=== PATIENT | male | born 1945 | race Two or more races ===

== ENCOUNTER 2022-02-09 22:40 | Inpatient (IN) | payer MEDICARE, OTHER ==
[~2022-02-09] VITALS: Ht 185.4 cm; Wt 83.9 kg
[2022-02-09] MEDS ORDERED: ACETAMINOPHEN 325 MG TAB PO ONE (23:45)
[2022-02-10 00:31] LABS: Urine Bacteria NONE SEEN /hpf (None Seen); Urine Blood Negative /uL (Negative); Urine Hyaline Cast MOD /lpf (0 - 2); Urine Specific Gravity 1.013 (1.001-1.035); Urine WBC 1 /hpf (0 - 3)
[2022-02-10 00:50] LABS: Alcohol, Urine < 3.0 mg/dL (0-10); Amphetamine Screen, Urine NEGATIVE (NEGATIVE); Barbiturate Scree,Urine NEGATIVE (NEGATIVE); Benzodiazephine Screen, Urine POSITIVE (NEGATIVE); Cocaine Screen, Urine NEGATIVE (NEGATIVE); Opiate Scree,Urine POSITIVE (NEGATIVE); Phencyclidine Screen, Urine NEGATIVE (NEGATIVE)
[2022-02-10 00:56] LABS: Hemoglobin 9.3 g/dL (13.5-17.5); Mean Corpuscular Hemoglobin 30.7 pg (28.0-32.0); Mean Corpuscular Hgb Conc. 33.2 g/dL (32.0-36.0); Mean Corpuscular Volume 92.4 fL (80.0-100.0); Red Blood Cells 3.03 10^6/uL (4.5-5.90); Red Cell Distribution Width 15.2 % (11.8-14.3); White Blood Cell 5.6 10^3/uL (4.4-10.8)
[2022-02-10 01:08] LABS: Basophils % (manual) 0 (0.0-2.0); Blast Cells 0; Eosinophils % (manual) 0 (0-7); Metamyelocytes % 0; Myelocytes % 0; Promyelocytes % 0; Reactive Lymphocytes 0
[2022-02-10 01:14] LABS: Alanine Aminotransferase 31 U/L (16-61); Albumin 3.4 g/dL (3.4-5.0); Anion Gap 13 (5-15); Aspartate Aminotransferase 40 U/L (15-37); Blood Urea Nitrogen 68 mg/dL (7-18); Calcium 8.1 mg/dL (8.5-10.1); Carbon Dioxide 18 mmol/L (21-32); Chloride 102 mmol/L (98-107); GFR African American 19 mL/min; GFR Non-African American 16 mL/min; Glucose 155 mg/dL (74-106); Sodium 133 mmol/L (136-145)
[2022-02-10 01:17] LABS: Alkaline Phosphatase 79 U/L (45-117); Total Protein 6.3 g/dL (6.4-8.2)
[2022-02-10 01:20] LABS: Cannabinoid Screen, Urine NEGATIVE (NEGATIVE)
[2022-02-10 01:24] LABS: Potassium 6.4 mmol/L (3.5-5.1)
[2022-02-10 01:41] LABS: Band Neutrophils % (manual) 26; Lymphocytes % (manual) 45 (10.0-50.0); Monocytes % (manual) 6 (0-12)
[2022-02-10] MEDS ORDERED: CALCIUM GLUC 1,000mg/50ml-NS 50 ML IV ONE (02:30)
[2022-02-10] MEDS ORDERED: DEXTROSE (50%) 50ML SYRG IV ONE (02:30)
[2022-02-10] MEDS ORDERED: SODIUM BICARBONATE 8.4% INJ 50ML SYRINGE IV ONE (02:30)
[2022-02-10] MEDS ORDERED: SODIUM ZIRCONIUM CYCL 10 GM PAK PO ONE (02:30)
[2022-02-10] MEDS ORDERED: InsuLIN REG 1unit/0.01ml Soln (100units/ml) IV ONE (02:30)
[2022-02-10] MEDS ORDERED: SODIUM CHLORIDE 0.9% 1,000 ML IV ONE ×3 (03:45→11:00)
[2022-02-10 10:25] LABS: Albumin 2.9 g/dL (3.4-5.0); Calcium 7.9 mg/dL (8.5-10.1)
[2022-02-10 10:29] LABS: % Iron Saturation 5.4 % (20-55); Bilirubin, Total 0.8 mg/dL (0.2-1.0); Total Protein 5.4 g/dL (6.4-8.2)
[2022-02-10] MEDS ORDERED: MORPHINE SULFATE INJ 2 MG/ml SYRG IV PRN (10:30)
[2022-02-10] MEDS: SODIUM CHLORIDE 0.9% 1,000 ML IV SCH (10:30)
[2022-02-10 10:35] LABS: BUN/Creatinine Ratio 18.7
[2022-02-10 12:09] LABS: Thyroid Stimulating Hormone 0.03 uIU/mL (0.358-3.74)
[2022-02-10 15:48] LABS: Thyroid Stimulating Hormone 0.03 uIU/mL (0.358-3.74)
[2022-02-10 22:03] LABS: Sodium Urine 43 mmol/L (40-220)
[2022-02-10 22:05] LABS: Creatinine, Urine 82 mg/dL (30.0-125.0)
[2022-02-11] MEDS: SODIUM CHLORIDE 0.9% 1,000 ML IV SCH ×3 (00:48→13:51)
[2022-02-11 07:51] LABS: Albumin 2.8 g/dL (3.4-5.0); BUN/Creatinine Ratio 20.2; Calcium 8.4 mg/dL (8.5-10.1); Potassium 5.2 mmol/L (3.5-5.1)
[2022-02-11 07:53] LABS: Total Protein 5.8 g/dL (6.4-8.2)
[2022-02-11] MEDS ORDERED: ENOXAPARIN SOD 30 MG/0.3 ML SYRINGE SC SCH (10:00)
[2022-02-11] MEDS: ONDANSETRON HCL 4 MG/2 ML VIAL IV PRN (10:39)
[2022-02-11] MEDS ORDERED: InsuLIN REG 1unit/0.01ml Soln (100units/ml) IV ONE (14:30)
[2022-02-11] MEDS ORDERED: DEXTROSE (50%) 50ML SYRG IV ONE (14:30)
[2022-02-11] MEDS ORDERED: CALCIUM GLUC 1,000mg/50ml-NS 50 ML IV ONE (14:30)
[2022-02-11] MEDS ORDERED: ALBUTEROL SULF 2.5 MG/0.5ML(0.5%) NEB SOLN NEB ONE (14:30)
[2022-02-11] MEDS ORDERED: LORazepam 0.5 MG TAB PO PRN (14:30)
[2022-02-11] MEDS ORDERED: PROPRANOLOL HCL 20 MG TAB PO ONE (14:30)
[2022-02-11] MEDS: SODIUM BICARBONATE 50ML VIAL 150 ML in D5W 5% 1,000 ML IV SCH (15:21)
[2022-02-11] MEDS: HYDROcodone-ACET 5/325MG TAB PO PRN (15:24)
[2022-02-11 15:56] LABS: Hematocrit 27.4 % (41.0-53.0); Hemoglobin 8.9 g/dL (13.5-17.5); Mean Corpuscular Hemoglobin 30.3 pg (28.0-32.0); Mean Corpuscular Hgb Conc. 32.6 g/dL (32.0-36.0); Mean Corpuscular Volume 92.7 fL (80.0-100.0); Red Blood Cells 2.95 10^6/uL (4.5-5.90); Red Cell Distribution Width 15.7 % (11.8-14.3); White Blood Cell 3.2 10^3/uL (4.4-10.8)
[2022-02-11 16:05] LABS: Basophils % (manual) 0 (0.0-2.0); Blast Cells 0; Metamyelocytes % 0; Myelocytes % 0; Promyelocytes % 0
[2022-02-11] MEDS: FERROUS SULFATE 325mg EC TAB PO SCH ×2 (18:00→22:26)
[2022-02-11 20:26] LABS: Band Neutrophils % (manual) 22; Eosinophils % (manual) 1 (0-7); Lymphocytes % (manual) 31 (10.0-50.0); Monocytes % (manual) 5 (0-12); Reactive Lymphocytes 7
[2022-02-11 22:00] VITALS: BP 117/52
[2022-02-11] MEDS: PROPRANOLOL HCL 20 MG TAB PO SCH (22:24)
[2022-02-11] MEDS: HYDROcodone-ACET 5/325MG TAB PO SCH ×2 (22:25→22:27)
[2022-02-12] MEDS: SODIUM BICARBONATE 50ML VIAL 150 ML in D5W 5% 1,000 ML IV SCH (01:15)
[2022-02-12 05:00] VITALS: BP 111/49
[2022-02-12] MEDS: SODIUM CHLORIDE 0.9% 1,000 ML IV SCH ×2 (05:24→21:18)
[2022-02-12] MEDS: HYDROcodone-ACET 5/325MG TAB PO SCH ×3 (06:25→21:17)
[2022-02-12] MEDS ORDERED: PANT40TA2 PO (07:01)
[2022-02-12] MEDS ORDERED: GUAI100S6 PO (07:01)
[2022-02-12 07:03] LABS: BUN/Creatinine Ratio 17.6; Calcium 7.6 mg/dL (8.5-10.1); Potassium 4.5 mmol/L (3.5-5.1)
[2022-02-12] MEDS ORDERED: GLUC1CAP11 PO (08:18)
[2022-02-12] MEDS ORDERED: NADO40TA4 PO (08:18)
[2022-02-12] MEDS ORDERED: SERT50TA19 PO (08:18)
[2022-02-12] MEDS ORDERED: SPIR25TA8 PO (08:18)
[2022-02-12] MEDS ORDERED: LEVO150T10 PO (08:18)
[2022-02-12] MEDS ORDERED: ASPI1TAB20 PO (08:18)
[2022-02-12] MEDS ORDERED: DIAZ5TAB PO (08:18)
[2022-02-12] MEDS ORDERED: LEVO25TA6 PO (08:18)
[2022-02-12] MEDS ORDERED: ALBU0.084 NEB (08:18)
[2022-02-12] MEDS ORDERED: FURO40TA4 PO (08:18)
[2022-02-12] MEDS ORDERED: SUCR1SUS5 PO (08:18)
[2022-02-12 09:00] VITALS: BP 101/49
[2022-02-12] MEDS: PROPRANOLOL HCL 20 MG TAB PO SCH ×2 (10:28→21:20)
[2022-02-12] MEDS: FERROUS SULFATE 325mg EC TAB PO SCH ×2 (10:28→21:17)
[2022-02-12 13:00] VITALS: BP 109/56
[2022-02-12 17:00] VITALS: BP 124/48
[2022-02-12 22:00] VITALS: BP 108/53
[2022-02-12] MEDS: diazePAM 5 MG TAB PO SCH (22:00)
[2022-02-12] MEDS ORDERED: HYDROcodone-ACET 5/325MG TAB PO PRN (22:45)
[2022-02-13] MEDS: HYDROcodone-ACET 5/325MG TAB PO PRN ×2 (04:18→21:05)
[2022-02-13 05:00] VITALS: BP 109/54
[2022-02-13 05:37] LABS: Hematocrit 24.8 % (41.0-53.0); Hemoglobin 8.3 g/dL (13.5-17.5); Mean Corpuscular Hgb Conc. 33.5 g/dL (32.0-36.0)
[2022-02-13 05:39] LABS: Mean Corpuscular Hemoglobin 31.2 pg (28.0-32.0); Mean Corpuscular Volume 93.2 fL (80.0-100.0); Red Blood Cells 2.66 10^6/uL (4.5-5.90); Red Cell Distribution Width 15.2 % (11.8-14.3); White Blood Cell 3.7 10^3/uL (4.4-10.8)
[2022-02-13] MEDS: diazePAM 5 MG TAB PO SCH (05:53)
[2022-02-13 05:59] LABS: BUN/Creatinine Ratio 12.5; Potassium 4.8 mmol/L (3.5-5.1)
[2022-02-13 06:34] LABS: Band Neutrophils % (manual) 0; Basophils % (manual) 0 (0.0-2.0); Blast Cells 0; Metamyelocytes % 0; Myelocytes % 0; Promyelocytes % 0
[2022-02-13 08:49] LABS: Eosinophils % (manual) 2 (0-7); Lymphocytes % (manual) 80 (10.0-50.0); Monocytes % (manual) 2 (0-12); Reactive Lymphocytes 1
[2022-02-13] MEDS: PROPRANOLOL HCL 20 MG TAB PO SCH ×2 (08:56→21:47)
[2022-02-13 09:00] VITALS: BP 103/51
[2022-02-13] MEDS: FERROUS SULFATE 325mg EC TAB PO SCH ×3 (09:07→17:22)
[2022-02-13] MEDS: SUCRALFATE 1 GM/10 ML ORAL SUSP PO SCH (09:07)
[2022-02-13] MEDS: SERTRALINE HCL 50 MG TAB PO SCH (09:08)
[2022-02-13] MEDS ORDERED: LEVOTHYROXINE SODIUM 25 MCG TAB PO SCH (10:00)
[2022-02-13] MEDS ORDERED: LEVOTHYROXINE SODIUM 50 MCG TAB PO SCH (10:00)
[2022-02-13] MEDS: SODIUM CHLORIDE 0.9% 1,000 ML IV SCH (10:11)
[2022-02-13] MEDS: ONDANSETRON HCL 4 MG/2 ML VIAL IV PRN ×2 (10:12→17:25)
[2022-02-13] MEDS ORDERED: SODIUM CHLORIDE 0.9% 1,000 ML IV SCH (11:45)
[2022-02-13 13:00] VITALS: BP 111/59
[2022-02-13] MEDS ORDERED: LACTULOSE 20Gm/30ML SOLN PO PRN (13:15)
[2022-02-13 17:00] VITALS: BP 115/55
[2022-02-13] MEDS ORDERED: TAMSULOSIN HYDROCHLORIDE 0.4 MG CAP PO SCH (18:00)
[2022-02-13 18:42] LABS: Basophils # (auto) 0 10 ^3/uL (0-0.2); Basophils % (auto) 0.2 % (0.0-2.0); Eosinophils # (auto) 0 10 ^3/uL (0-0.8); Eosinophils % (auto) 0.9 % (0.0-7.0); Hematocrit 28.9 % (41.0-53.0); Hemoglobin 9.6 g/dL (13.5-17.5); Lymphocytes # (auto) 3.4 10 ^3/uL (0.4-5.4); Mean Corpuscular Hgb Conc. 33.3 g/dL (32.0-36.0); Monocytes # (auto) 0.1 10 ^3/uL (0-1.3); Monocytes % (auto) 2.5 % (0.0-12.0); Neutrophils # (auto) 1.1 10 ^3/uL (1.6-8.6); Neutrophils % (auto) 24.1 % (37.0-80.0); Nucleated Red Blood Cells % 0.7 %; Red Blood Cells 3.11 10^6/uL (4.5-5.90); Red Cell Distribution Width 15.6 % (11.8-14.3); White Blood Cell 4.7 10^3/uL (4.4-10.8)
[2022-02-13 18:45] LABS: Lymphocytes % (auto) 72.3 % (10.0-50.0)
[2022-02-13 22:00] VITALS: BP 117/51
[2022-02-14] MEDS: HYDROcodone-ACET 5/325MG TAB PO PRN (03:49)
[2022-02-14] MEDS: ONDANSETRON HCL 4 MG/2 ML VIAL IV PRN (03:49)
[2022-02-14 05:00] VITALS: BP 116/54
[2022-02-14 06:02] LABS: BUN/Creatinine Ratio 10.8; Calcium 7.9 mg/dL (8.5-10.1); Potassium 5.1 mmol/L (3.5-5.1)
[2022-02-14] MEDS ORDERED: LEVOTHYROXINE SODIUM 50 MCG TAB PO SCH (07:00)
[2022-02-14 08:00] VITALS: BP 118/52
[2022-02-14] MEDS: SERTRALINE HCL 50 MG TAB PO SCH (08:52)
[2022-02-14] MEDS: PROPRANOLOL HCL 20 MG TAB PO SCH (08:53)
[2022-02-14] MEDS: FERROUS SULFATE 325mg EC TAB PO SCH (08:53)
[2022-02-14] MEDS: SUCRALFATE 1 GM/10 ML ORAL SUSP PO SCH (08:53)
[2022-02-14] MEDS: LACTULOSE 20Gm/30ML SOLN PO SCH ×2 (08:53→09:07)
[2022-02-14 09:00] VITALS: BP 118/52
[2022-02-14] MEDS ORDERED: FER325T PO (11:50)
[2022-02-14] MEDS ORDERED: TAM04C PO (11:50)
[2022-02-14 12:09] VITALS: BP 118/52
[2022-02-14 13:00] VITALS: BP 126/55
== END 2022-02-14 13:00 | disposition home or self-care (01) | DRG 640 ==
LOC: EDBD 22:40 → ER 22:40 → TELE 02-10 10:45 → TELE-WESTW 02-11 18:52
PROVIDERS: ADMIT Nurse Practitioner Family; ATTEND Internal Medicine
DX: E87.5 Hyperkalemia (principal); G92.8 Other toxic encephalopathy; D62 Acute posthemorrhagic anemia; N17.9 Acute kidney failure, unspecified; R18.8 Other ascites; E87.21 Acute metabolic acidosis; E03.9 Hypothyroidism, unspecified; N18.9 Chronic kidney disease, unspecified; I95.9 Hypotension, unspecified; Z20.822 Contact with and (suspected) exposure to COVID-19; E88.09 Other disorders of plasma-protein metabolism, not elsewhere classified; D69.59 Other secondary thrombocytopenia; I25.10 Atherosclerotic heart disease of native coronary artery without angina pectoris; J44.9 Chronic obstructive pulmonary disease, unspecified; Z95.1 Presence of aortocoronary bypass graft
CPT/HCPCS: 36415; 70450; 71045; 76775; 80048; 80053; 80307; 80320; 81001; 82140; 82570; 82962; 83540; 83550; 83605; 83615; 83880; 83935; 84100; 84132; 84300; 84443; 84484; 84550; 85007; 85025; 85027; 86850; 86900; 86901; 87040; 87077; 87186; 87426; 87804; 94640; 96361; 96365; 96375; 99291; 99292; G0378; J1815; J2405